=== PATIENT | female | born 1970 | race Caucasian/White ===

== ENCOUNTER → 2024-02-29 09:01 | Outpatient (BNVA) | payer MEDICAID, SELFPAY | PROVIDERS: PCP Family Medicine; Visit Provider Family Medicine | DX: Z00.00 Encounter for general adult medical examination without abnormal findings (principal); F32.A Depression, unspecified | CPT/HCPCS: 80053; 80061 ==

== ENCOUNTER 2024-03-10 08:15 | Outpatient (CLI) | payer MEDICAID, SELFPAY ==
--- NOTE | 2024-03-10 08:30 | MM_ITS ---
WS: [id number] Bilateral screening 3D tomosynthesis digital mammogram, 03/10/2024 Clinical Data: screening Comparison: None. Findings: The breast parenchymal pattern shows fibroglandular tissue. No spiculated masses or clustered calcifi cations are seen. There are no secondary signs of carcinoma. There are small lymph nodes in both axil la. MM/[id number] Impression: 1. Negative bilateral mammogram with no prior exam for review. 2. Recommend annual screening mammograms. BIRADS: 1-Negative FOLLOW UP: 1 Year Follow-up The CAD quality control checker was used.
== END 2024-03-10 08:16 | disposition home or self-care (01) ==
LOC: RAD 08:15
PROVIDERS: PCP Family Medicine; Visit Provider Family Medicine
DX: Z12.31 Encounter for screening mammogram for malignant neoplasm of breast (principal)
CPT/HCPCS: 77063; 77067

== ENCOUNTER 2024-04-24 09:36 | Day surgery (SDC) | payer MEDICAID, SELFPAY ==
[2024-04-24 09:53] VITALS: BP 149/103; PULSE 84; RESP 18; TEMP 36.4; O2SAT 97; BMI 28.3
[2024-04-24] MEDS: sodium chloride 0.9% 1,000 ML 30 ML IV (10:26)
--- NOTE | 2024-04-24 10:34 | ANES.PREANE2 ---
Pre-Anesthetic Assessment Height/Weight: Height 1.57 m Weight 70.307 kg Temp Pulse Resp BP Pulse Ox O2 Del Method 97.5 F L 84 18 149/103 97 Room Air 04/24/24 09:53 04/24/24 09:53 04/24/24 09:53 04/24/24 09:53 04/24/24 09:53 04/24/24 09:53 Preop Diagnosis: screening Operation Date: 04/24/24 10:45 Proposed Procedures p Colonoscopy / 81469, G0121, Z12.11(Not Applicable) - Bhavesh Garrido MD Was Beta Gage taken within 24 hours: N/A Was Clonidine taken within 24 hours: N/A Last intake: Intake Last Liquid Date 04/23/24 Last Liquid Time 23:50 Last Solid Date 04/22/24 Last Solid Time 13:30 Social No alcohol and No tobacco Exam alert, oriented x 3, clear to auscultation bilaterally and regular rate & rhythm Airway Submandibular: within normal limits Cervical ROM: within normal limits Mallampati: Class II Dentition: full History/ROS No significant history except as noted and No significant complaints Pulmonary None reported 4 mets CV/HEM None reported None reported Hepatic None reported GI None reported Metabolic None reported Musc/skel None reported Neuropsych Depression Anesthetic Plan ASA status: 2 Anesthesia: MAC Risk of > 500 ml blood loss (7ml/kg in children): No Other Pertinent Information none Medications/Allergies Home Medications Medication Instructions Recorded Confirmed Last Taken Type escitalopram oxalate 10 mg tablet 10 mg PO DAILY 04/20/24 04/20/24 04/23/24 History (Lexapro) Allergies Allergy/AdvReac Type Severity Reaction Status Date / Time blue cheese Allergy ALGY-Swell Uncoded 04/24/24 09:57 Lip/Tongue/Throat feta cheese Allergy ALGY-Swell Uncoded 04/24/24 09:57 Lip/Tongue/Throat Current Medications Generic Name Dose Route Start Last Admin Trade Name Freq PRN Reason Stop Dose Admin Sodium Chloride 1,000 mls @ 30 mls/hr 04/24/24 10:00 04/24/24 10:26 Sodium Chloride 0.9% IV 04/25/24 09:59 30 mls/hr .Q24H LIANNA Administration PFSH Anesthesia Medical History Depression Social History Smoking and tobacco/nicotine status: never used tobacco/nicotine Data Anesthesia Cardiac Studies: No Data to Display
--- NOTE | 2024-04-24 10:35 | W.PM.OPSUD ---
Surgery/Procedure H&P Update DATE OF PROCEDURE: April 24, 2024 DATE H&P PERFORMED: 03/14/24 H&P UPDATE INFORMATION: I have reviewed H&P completed within last 30 days, I have examined patient prior to procedure and No changes to prior documentation PLANNED PROCEDURE: Operation Date: 04/24/24 10:45 Proposed Procedures p Colonoscopy / 50115, G0121, Z12.11(Not Applicable) - Bhavesh Garrido MD
[2024-04-24 11:47] VITALS: BP 101/70; PULSE 89; RESP 18; TEMP 36.2; O2SAT 92
[2024-04-24 12:00] VITALS: BP 116/81; PULSE 82; RESP 18; O2SAT 99
[2024-04-24 12:10] VITALS: BP 124/78; PULSE 76; RESP 18; O2SAT 99
--- NOTE | 2024-04-24 12:30 | ANE.PACU2 ---
Inpatient post-anesthesia follow up: Airway intact: Yes Vital signs: Temperature 97.2 F Pulse Rate 76 Respiratory Rate 18 Blood Pressure 124/78 Pulse Oximetry 99 Oxygen Delivery Me thod Room Air Oxygen Flow Rate Fraction of Inspir ed Oxygen Hydration adequate: Yes Nausea and vomiting: No Pain level: 1 Mental status: Baseline
--- NOTE | 2024-04-25 14:36 | PM.HP ---
Providers/Chief Complaint Primary Care Provider: Reji Magdaleno MD Chief Complaint: Z12.11 History of Present Illness 53-year-old female with no relevant past medical or surgical history who was referred for screening colonoscopy. No family history of colon cancer. No constitutional symptoms. No GI issues. No anticoagulation or antiplatelet therapy. Has never had a colonoscopy. Medications/Allergies Home Medications Medication Instructions Recorded Confirmed Last Taken Type escitalopram oxalate 10 mg tablet 10 mg PO DAILY 04/20/24 04/20/24 04/23/24 History (Lexapro) Allergies Allergy/AdvReac Type Severity Reaction Status Date / Time blue cheese Allergy ALGY-Swell Uncoded 04/24/24 09:57 Lip/Tongue/Throat feta cheese Allergy ALGY-Swell Uncoded 04/24/24 09:57 Lip/Tongue/Throat PFSH Acute PFSH: Medical History Depression Social History Smoking and tobacco/nicotine status: never used tobacco/nicotine Vitals/I&O/Wt Last Vital Signs Temp 97.2 F L 04/24/24 11:47 Pulse 76 04/24/24 12:10 Resp 18 04/24/24 12:10 BP 124/78 04/24/24 12:10 Pulse Ox 99 04/24/24 12:10 O2 Del Method Room Air 04/24/24 12:10 Weight last 48 hrs Weight 155 lb Physical Exam Narrative: Chest: Unlabored breathing room air. No lymphadenopathy. Heart: Regular rate and rhythm. Abdomen: Soft, nontender, nondistended. No masses or lymphadenopathy. A&P Assessment and plan (1) Encounter for screening colonoscopy: Plan 54-year-old female who presents for screening colonoscopy. Attestations Medical Necessity Statement*: N/A Coding Level of Care Code 31818 Diagnoses Encounter for screening colonoscopy Z12.11 Time Spent (min) 30
== END 2024-04-24 12:30 | disposition home or self-care (01) ==
PROVIDERS: PCP Family Medicine; Visit Provider Student in an Organized Health Care Education/Training Program
PROC: 0DJD8ZZ Inspection of Lower Intestinal Tract, Via Natural or Artificial Opening Endoscopic (ICD-10-PCS; CPT 45378; principal; 2024-04-24 10:45)
DX: Z12.11 Encounter for screening for malignant neoplasm of colon (principal); K63.5 Polyp of colon; F32.A Depression, unspecified; K62.1 Rectal polyp; K57.90 Diverticulosis of intestine, part unspecified, without perforation or abscess without bleeding
CPT/HCPCS: 45380; 45385; 88305; J2704; J7030

== ENCOUNTER → 2025-03-07 11:48 | Outpatient (BNVA) | payer MEDICAID, SELFPAY | PROVIDERS: PCP Family Medicine; Visit Provider Family Medicine | DX: Z00.00 Encounter for general adult medical examination without abnormal findings (principal); F32.A Depression, unspecified; E78.5 Hyperlipidemia, unspecified | CPT/HCPCS: 80053; 80061 ==

== ENCOUNTER 2025-03-14 09:44 | Outpatient (CLI) | payer MEDICAID, SELFPAY ==
--- NOTE | 2025-03-14 10:00 | MM_ITS ---
WS: [id number] BILATERAL SCREENING DIGITAL TOMOSYNTHESIS MAMMOGRAM WITH CAD HISTORY: screening COMPARISON: 03/10/2024 Bilateral CC and MLO views with tomosynthesis and synthetic mammography submitted. Computer aided detection analyzed. Breast composition: There are scattered areas of fibroglandular density. No suspicious masses, microcalcifications or architectural distortion. Stable intramammary lymph nodes upper outer quadrant RIGHT breast. Slightly lobulated 5 mm mass in the lateral LEFT breast is also stable. No new mass or distortion. No suspicious grouping of calcifications. MM/MM scr tomosynthesis [id number] IMPRESSION: BI-RADS: 2 - Benign. FOLLOW UP: 1 Year Follow-up
== END 2025-03-14 09:45 | disposition home or self-care (01) ==
LOC: RAD 09:45
PROVIDERS: PCP Family Medicine; Visit Provider Family Medicine
DX: Z12.31 Encounter for screening mammogram for malignant neoplasm of breast (principal); Z00.00 Encounter for general adult medical examination without abnormal findings; F32.A Depression, unspecified; E78.5 Hyperlipidemia, unspecified; R92.323 Mammographic fibroglandular density, bilateral breasts; R92.8 Other abnormal and inconclusive findings on diagnostic imaging of breast; N63.20 Unspecified lump in the left breast, unspecified quadrant
CPT/HCPCS: 77063; 77067